=== PATIENT | female | born 1965 | race Hispanic/Latino ===

== ENCOUNTER 2016-12-05 08:32 | Day surgery (SDC) | payer OTHER ==
[~2016-12-05] VITALS: Ht 152.4 cm; Wt 81.6 kg
[2016-12-05] VITALS (11 sets, daily range): BP systolic 117–170; BP diastolic 70–92; PULSE 57–68; RESP 10–17; O2SAT 94–100
[~2016-12-05 08:32] MED LIST: CHOL40003 PO; FERR325C PO; GLUC-91 PO; HYDR25TA4 PO; OMEG1CAP25 PO
[2016-12-05] MEDS ORDERED: fentaNYL-PF 50 mCg/mL 2 mL Inj ONE (08:33)
[2016-12-05] MEDS ORDERED: Dexamethasone 4 mg/mL Inj ONE (08:33)
[2016-12-05] MEDS ORDERED: Propofol 10,000 mCg/mL 20 mL Inj ONE (08:33)
[2016-12-05] MEDS ORDERED: Ondansetron 2 mg/mL 2 mL Inj ONE (08:33)
[2016-12-05] MEDS: Lactated Ringer's 1,000 ML IV SCH ×2 (09:11→11:02)
[2016-12-05 09:37] LABS: BASOPHILS % (AUTO) 0.6 % (0-3); MONOCYTES % (AUTO) 6.8 % (4-12); Mean Corpuscular Hemoglobin 28.4 pg (27.0-35.0); Mean Corpuscular Volume 81.7 fL (81-100); NEUTROPHILS % (AUTO) 66.4 % (40-74); Platelet Count 146 bil/L (150-400)
[2016-12-05] MEDS ORDERED: Lactated Ringer's 1,000 ML IV SCH (11:01)
[2016-12-05] MEDS ORDERED: Lactated Ringer's 500 ML IV PRN (11:01)
--- NOTE | 2016-12-05 11:01 | PCM.HPANE ---
Patient Data Date of Service: Dec 05, 2016 Surgeon Admitting Provider: Attending Provider:Johnny Casiano MD Primary Care Physician:Kierra Other Provider:Eli Kumar Anesthesia Reason for Visit Abnormal Uterine Bleeding Ht/WT & BMI Height (Feet): 5 Height (Inches): 0.00 Weight (Kilograms): 81.6 Body Mass Index 35.00 Allergies Coded Allergies: No Known Allergies (Verified Allergy, Unknown, 07/28/06) Past Anesthesia History Anesthesia History: Positive for:: Anesthesia Reactions (PONV) Diabetes History Hx Diabetes?: No Medications Hypertension Medication: Yes Home Meds Incl Beta Geeta: No Reported Medications Cholecalciferol (Vitamin D3) (Vitamin D3)4,000 Unit Capsule4,000 Unit PO DAILY 12/01/16 Roland-3 Fatty Acids/Fish Oil (Roland 3 Fish Oil Softgel)1 Each Capsule.dr1 Each PO DAILY 12/01/16 Ferrous Sulfate (Iron)325 Mg Capsule.er325 Mg PO DAILY 12/01/16 Hydrochlorothiazide 25 Mg Wvifxh41 Mg PO DAILY 30 Days Ref 0 12/01/16 Gluc/Yash-MSM#1/Vit C/Rob/Bor (Gotiuym-Htjxt-NHD Complex Cplt)1 Each Tablet1 Each PO DAILY 12/01/16 History History of ENT Problems?: No HEENT History: Denies:: Difficult Intubation Denture Type: None Teeth Condition: Within Normal Limits Hx of Heart Problems?: Yes Cardiovascular History: Positive for:: Hypertension Hx of Respiratory Problem?: No Respiratory History: Denies:: Asthma Hx Neurologic Problems?: No Hx of GI Problems?: No Hx of Problems?: No Hx Musculoskeletal Problems?: No Hx Surgeries?: Yes Hx Any Other Health Problems?: No Other History: Denies:: Cancer Hx Diabetes: No Stop/Bang P-Blood Pressure: treated: Yes B- Body Mass Index > 35 kg/m2: No A- Age over 50: Yes N- Neck Large Circumference: No G- Gender Male: No KIT Risk Assessment: Low Risk, <3 Yes Risk Assessment Category Category 1A: Patient has history of documented sleep apnea, and HAS NOT received any narcotic, sedative or anesthesia administration during this stay. Category 1B: Patient has history of documented sleep apnea, and HAS received any narcotic , sedative or anesthesia administration during this stay Category 2: Patient has SUSPECTED Obstructive Sleep Apnea, and HAS received any narcotic , sedative or anesthesia administration during this stay. Category 3: Patient has SUSPECTED Obstructive Sleep Apnea and HAS NOT received narcotic, sedative or anesthesia administration during this stay. Category 4: Outpatient in Procedural Areas with known sleep apnea or who screen positive for High Risk via the STOP/BANG questionnaire. Exam Exam Vital Signs Vital Signs Date Time Temp Pulse Resp B/P Pulse Ox O2 Delivery O2 Flow Rate FiO2 12/05/16 09:05 36.4 68 16 141/77 98 Room Air General Appearance: Alert, Oriented X3, Cooperative, No Acute Distress HEENT/AIRWAY: MP 3 Lungs: Clear to Auscultation, Normal Air Movement Heart: Exam Unremarkable, Regular Rate/Rhythm, No Murmurs/Rubs/Gallops Meds/Labs/Diagnostics Admission Meds Current Medications Lactated Ringer's (Lr) 1,000 ml @ 120 mls/hr Q8H20M IV Last administered on t 09:11; Start 12/05/16 at 05:00; Stop 12/05/16 at 13:19 Labs Test 12/05/16 09:24 White Blood Count 5.1th/mm3 (3.8-10.1) Red Blood Count 4.54mil/mm3 (3.90-5.20) Hemoglobin 12.9g/dL (12.0-15.6) Hematocrit 37.1% (35.0-46.0) Mean Corpuscular Volume 81.7fL (81-100) Mean Corpuscular Hemoglobin 28.4pg (27.0-35.0) Mean Corpuscular Hemoglobin Concent 34.8% (32.0-37.0) Red Cell Distribution Width 13.3% (12.3-15.4) Platelet Count 146bil/L (150-400) Neutrophils (%) (Auto) 66.4% (40-74) Lymphocytes (%) (Auto) 25.2% (14-46) Monocytes (%) (Auto) 6.8% (4-12) Eosinophils (%) (Auto) 1.0% (0-5) Basophils (%) (Auto) 0.6% (0-3) Plan Impression Patient chart reviewed, patient interviewed and anesthestic plan with risks, benefits, and alternatives discussed, and informed consent obtained. NPO per Anesth. Guidelines: Yes ASA Physical Status: ASA2 Mod Systemic Disease Anesthetic Plan: GA Bene/Risks/Altern/Consents: Yes HP Complete Prior to Induction: Yes Jimmy Tomlin MD Dec 05, 2016 10:56
[2016-12-05] MEDS ORDERED: fentaNYL-PF 50 mCg/mL 2 mL Inj IVPUSH PRN (11:05)
[2016-12-05] MEDS ORDERED: Ondansetron 2 mg/mL 2 mL Inj IVPUSH PRN ×2 (11:05→12:25)
[2016-12-05] MEDS ORDERED: EPHEDrine Sulfate 50 mg/mL Inj IVPUSH PRN (11:05)
[2016-12-05] MEDS ORDERED: Phenylephrine 10,000 mCg/mL Inj IVPUSH PRN (11:05)
[2016-12-05] MEDS ORDERED: hydrALAZINE 20 mg/mL Inj IVPUSH PRN (11:05)
[2016-12-05] MEDS ORDERED: MetoCLOpramide 5 mg/mL 2 mL Inj IVPUSH PRN ×2 (11:05→12:25)
[2016-12-05] MEDS ORDERED: Labetalol 5 mg/mL 4 mL Inj IV PRN (11:05)
[2016-12-05] MEDS ORDERED: Atropine 0.4 mg/mL Inj IVPUSH PRN (11:05)
[2016-12-05] MEDS ORDERED: HYDROmorphone 1 mg/mL Inj IVPUSH PRN (11:05)
[2016-12-05] MEDS ORDERED: diphenhydrAMINE 25 mg Capsule PO PRN (12:25)
[2016-12-05] MEDS ORDERED: HYDROcodone-APAP 5-325 mg Tablet PO PRN (12:25)
--- NOTE | 2016-12-05 12:29 | PCM.ANEP1 ---
Post Anesthesia PACU Phase 1 Assessment Date of Service: Dec 05, 2016 Vital Signs 36.5 135/85 67 14 96% FM Anesthetic Administered: GA Level of Alertness: Sleeping, hard to arouse MIMS's with Equal Strength: Yes Pain: No Nausea or Vomiting: No CV Function & Hydration Stable: Yes Airway Device: Oxygen Delivery: Simple Mask Lungs: Clear to Auscultation, Normal Air Movement PACU Phase 2 Assessment Complications: No Follow up Care: No Patient Instructions Provided: Yes Jimmy Tomlin MD Dec 05, 2016 12:29
--- NOTE | 2016-12-05 12:29 | PCM.DIGYN ---
Surgical Discharge Instruction Dates of Hospitalization Date of Hospital Admission Providers Admitting Physician: Primary Care Physician: Kierra Attending Physician: Johnny Casiano MD Diet Discharge Diet: No restrictions Activity Discharge Activity-General: Balance rest and activity, Activity as pain allows , Activity as energy allows, No driving while taking narcotic Dressing and Incisional Care Hygiene: May shower, NO bathtub, hot tub or whirlpool Additional Instructions Discharge Instructions Nothing in the vagina for 2 weeks. Expect spotting afterwards for 1-2 weeks. You will be notified of the results from the tissue collected today. Follow up in 2 weeks. Follow Up Plan Follow-up Provider (F9): Johnny Casiano MD Follow-up appointment: Weeks (2) Call your provider for: Fever, Chills, Shortness of breath, Vomitting, Drainage at incision, Heavy vaginal bleeding, Wound redness, Increasing pain Soraya Cloud DO Dec 05, 2016 12:29
--- NOTE | 2016-12-05 14:01 | OP ---
[address] [address] OPERATIVE REPORT PATIENT: DANIELLE HERRERA : 1965 MR#: [id number] ADMIT: 12/05/2016 JOB ID: [id number] DATE OF SURGERY: 12/05/2016 PREOPERATIVE DIAGNOSIS(ES): 1. Abnormal uterine bleeding. 2. Uterine fibroids. POSTOPERATIVE DIAGNOSIS(ES): 1. Abnormal uterine bleeding. 2. Uterine fibroids. PROCEDURE PERFORMED: 1. NovaSure endometrial ablation. 2. Hysteroscopy and dilation and curettage (D and C) with MyoSure. SURGEON: Johnny Casiano MD RESIDENTS: 1. Soraya Cloud DO, PGY2. 2. Sydnie Price DO, PGY1. ANESTHESIA: General. ESTIMATED BLOOD LOSS: 50 mL. COMPLICATIONS: None. PATHOLOGY AT TIME OF SURGERY: Endometrial curettings. FINDINGS AT TIME OF SURGERY: Exam under anesthesia showing an enlarged irregular-shaped uterus that was mobile. The vagina and cervix were normal in appearance. She had good apical support of her vagina. No significant cystocele or rectocele appreciated under anesthesia. Hysteroscopic findings showing a submucosal fibroid on the anterior surface of the endometrium. Otherwise, no evidence of any polyps appreciated. Endocervical canal was normal in appearance. PROCEDURE: The patient was taken to the operating room, where her general anesthesia was obtained without difficulty. She was placed in a lithotomy position in the [facility] and prepared and draped in normal sterile fashion. A bivalved speculum was inserted into the patient's vagina and the cervix was identified and grasped with a single-tooth tenaculum. The cervix was dilated using Hegar cervical dilators to a 7-Latvian. The MyoSure hysteroscope was then inserted and the above noted findings were appreciated. The classic MyoSure device was then inserted and endometrial curettings were obtained. This device was then removed. The uterine cavity was measured and was 10 cm in length. The cavity after insertion of the NovaSure device was 4.6 cm. The NovaSure device was inserted. The cavity test passed. With the 1st attempt the vacuum seal check failed. After multiple attempts to try to reset the device, a new NovaSure ablation device was opened and inserted into the endometrial cavity. This device passed the cavity check as well as the vacuum seal. The ablation cycle was completed without alarms for a total of 1 minute 7 seconds. Power was 164 ross. The NovaSure device was then removed and the tenaculum and speculum were removed from the patient's vagina. Monsel's solution was applied to the cervix for hemostasis and good hemostasis was assured. All lap, instrument, and needle counts were correct x2. At the end of the procedure, the patient was taken to the recovery room, awake and in good condition.
--- NOTE | 2016-12-08 12:03 | PATH ---
SURGICAL PATHOLOGY Attending Physician:Johnny Casiano, CASE STATUS: Signed Out PATIENT NAME: DANIELLE HERRERA PID: [id number] : 1965 DATE COLLECTED:12/05/2016 21:13 SPECIMEN: Endometrium, Curettage CLINICAL HISTORY: ABNORMAL UTERINE BLEEDING 1). MYOSURE ENDOMETRIAL CURETTINGS FINAL DIAGNOSIS: 1.ENDOMETRIAL CURETTINGS: PROLIFERATIVE ENDOMETRIUM WITH DISORDERED MATURATION AND CHANGES OF GLANDULAR AND STROMAL BREAKDOWN, NEGATIVE FOR ATYPIA. TISSUE FRAGMENTS CONSISTENT WITH BENIGN ENDOMETRIAL POLYP, NEGATIVE FOR ATYPIA. FRAGMENTS OF BENIGN MYOMETRIUM. ICD10 N93.8 GROSS DESCRIPTION: Received in formalin, labeled with the patient' s name and "endometrial curetting", is a mesh sock containing a collection of dark and light aceves tissue fragment measuring 4.0 x 3.0 x 1.0 cm in aggregate. All fragments are totally submitted in cassettes 1A and 1B. ([id number]) MICRO DESCRIPTION: See diagnosis. ICD-9 CODES: CPT CODES: 1: 57093 Electronically Signed Out Enrique Aragon MD [facility] [address], [place] [address] Technical component performed at [facility], [facility] [address], [place], [address]
== END 2016-12-05 23:59 | disposition home or self-care (01) ==
LOC: SAS 08:32
PROVIDERS: ATTEND Obstetrics & Gynecology
DX: D25.0 Submucous leiomyoma of uterus (principal); N93.9 Abnormal uterine and vaginal bleeding, unspecified; D50.0 Iron deficiency anemia secondary to blood loss (chronic)
CPT/HCPCS: 36415; 58563; 85025; J1100; J1885; J2250; J2405; J3010; J7120